=== PATIENT | female | born 1940 | race Caucasian/White ===

== ENCOUNTER 2022-06-25 21:07 | Inpatient (IN) | payer MEDICARE ==
[2022-06-26] MEDS ORDERED: Ondansetron PF 4 MG/2 ML Vial IVP PRN (01:59)
[2022-06-26] MEDS ORDERED: Ondansetron ODT 4 MG TAB PO PRN (01:59)
[2022-06-26 04:46] LABS: #Basophils 0.1 thou/uL (0.0-0.2); #Eosinphils 0.1 thou/uL (0.0-0.7); #Neutrophils 4.2 thou/uL (1.40-6.50); %Basophils 0.9 % (0.0-1.0); %Eosinophils 0.9 % (0.0-10.0); %Lymphocytes 22.1 % (21.0-51.0); %Monocytes 14.5 % (0.0-10.0); %Neutrophils 60.3 % (42.0-75.0); Hemoglobin 14.1 g/dL (12.0-16.0); Mean Corpuscular HGB CONC 32.9 g/dL (32.0-36.0); Mean Corpuscular Hemoglobin 30.5 pg (27.0-31.0); Mean Corpuscular Volume 92.4 fl (78.0-98.0); Mean Platelet Volume 9.6 fL (7.4-10.4); Platelet Count 271 10x3/uL (130-400); RBC Distribution Width 12.9 % (11.5-14.5); Red Blood Cell (RBC) Count 4.63 mill/uL (4.20-5.40)
[2022-06-26 04:56] LABS: Hemoglobin A1c 4.4 % (4.0-6.0)
[2022-06-26 05:16] LABS: Anion Gap 10 mmol/L (10-20); BUN (Urea Nitrogen) 20 mg/dL (9.8-20.1); Calc. Creatinine Clearance 65 mL/min (70-130); Calcium 8.7 mg/dL (7.8-10.44); Carbon Dioxide 25 mmol/L (23-31); Cardiac Risk 4.8 (Less than 4.5); Chloride 105 mmol/L (98-107); Cholesterol 219 mg/dl (< 200 Desired); Estimated GFR 66; Glucose 95 mg/dL (83-110); HDL Cholesterol 46 mg/dL (>60 Neg Risk); LDL Cholesterol, Calculated 133 mg/dL; Potassium 3.7 mmol/L (3.5-5.1); Sodium 136 mmol/L (136-145); Triglycerides 199 mg/dL (Less than 150)
[2022-06-26 07:12] LABS: Bacteria/HPF None Seen HPF (None Seen); Bilirubin Negative (Negative); Blood, Urine Negative (Negative); Clarity Clear (Clear); Glucose, Urine (Dipstick) Normal (Negative); Ketone, Urine Negative (Negative); Leukocyte Negative Leu/uL (Negative); Nitrite Negative (Negative); Protein, Urine (Dipstick) Negative (Neg-Trace); RBC/HPF 0-3 HPF (0-3); Specific Gravity, Urine 1.012 (1.002-1.036); Squamous Epithelial None Seen HPF (0-3); Urobilinogen Normal mg/dL (Less than 2); WBC/HPF 0-3 HPF (0-3); pH, Urine 7.5 (5.0-9.0)
[2022-06-26] MEDS: Aspirin 81 mg Enteric Coated Tablet PO SCH (08:28)
[2022-06-26] MEDS ORDERED: Lisinopril 10 MG TAB PO SCH (11:20)
[2022-06-26] MEDS: hydrALAZINE 20 MG/ML VIAL SLOW IVP PRN ×2 (12:17→20:18)
[2022-06-26] MEDS: Acetaminophen 325 MG TAB PO PRN ×2 (16:58→20:42)
[2022-06-26] MEDS: Rosuvastatin 20 MG TAB PO SCH (20:15)
[2022-06-26] MEDS ORDERED: Atorvastatin Calcium 40 MG TAB PO SCH (21:00)
[2022-06-27 04:34] LABS: #Basophils 0.1 thou/uL (0.0-0.2); #Eosinphils 0.1 thou/uL (0.0-0.7); #Monocytes 0.9 thou/uL (0.11-0.59); #Neutrophils 4.4 thou/uL (1.40-6.50); %Basophils 0.9 % (0.0-1.0); %Eosinophils 1.9 % (0.0-10.0); %Lymphocytes 18.3 % (21.0-51.0); %Monocytes 13.5 % (0.0-10.0); %Neutrophils 64.4 % (42.0-75.0); Hemoglobin 14.6 g/dL (12.0-16.0); Mean Corpuscular HGB CONC 33.5 g/dL (32.0-36.0); Mean Corpuscular Hemoglobin 30.4 pg (27.0-31.0); Mean Corpuscular Volume 90.8 fl (78.0-98.0); Mean Platelet Volume 9.5 fL (7.4-10.4); Platelet Count 297 10x3/uL (130-400); RBC Distribution Width 12.9 % (11.5-14.5); White Blood Cell (WBC) Count 6.8 10x3/uL (4.8-10.8)
[2022-06-27 05:02] LABS: Anion Gap 11 mmol/L (10-20); BUN (Urea Nitrogen) 20 mg/dL (9.8-20.1); Calc. Creatinine Clearance 70 mL/min (70-130); Calcium 9.2 mg/dL (7.8-10.44); Carbon Dioxide 22 mmol/L (23-31); Chloride 105 mmol/L (98-107); Estimated GFR 72; Glucose 95 mg/dL (83-110); Potassium 3.8 mmol/L (3.5-5.1); Sodium 134 mmol/L (136-145)
[2022-06-27] MEDS: Acetaminophen 325 MG TAB PO PRN ×4 (08:38→22:05)
[2022-06-27] MEDS: Aspirin 81 mg Enteric Coated Tablet PO SCH (08:39)
[2022-06-27] MEDS: Multivitamin W/ Minerals 1 TAB PO SCH (08:39)
[2022-06-27] MEDS: Calcium Carbonate 500 MG TAB PO SCH (08:40)
[2022-06-27] MEDS ORDERED: Aspirin Chewable 81 MG TAB PO SCH (09:00)
[2022-06-27] MEDS ORDERED: Non-Formulary Item 1 EACH (Multivitamin [Multivitamin] 1 EACH Tablet) PO SCH (09:00)
[2022-06-27] MEDS ORDERED: Lisinopril 10 MG TAB PO SCH (09:00)
[2022-06-27] MEDS ORDERED: Ascorbic Acid 500 mg Chewable Tablet PO SCH (09:00)
[2022-06-27] MEDS ORDERED: Lisinopril 20 MG TAB PO SCH (09:00)
[2022-06-27] MEDS ORDERED: Calcium Carbonate 500 MG TAB PO SCH (09:00)
[2022-06-27] MEDS ORDERED: Amlodipine 5 MG TAB PO SCH (09:00)
[2022-06-27] MEDS ORDERED: Labetalol HCl 100 MG/20 ML VIAL SLOW IVP SCH (09:15)
[2022-06-27] MEDS ORDERED: Labetalol HCl 100 MG/20 ML VIAL SLOW IVP PRN (13:17)
[2022-06-27] MEDS: Rosuvastatin 20 MG TAB PO SCH (20:21)
[2022-06-28] MEDS: Acetaminophen 325 MG TAB PO PRN ×3 (03:44→22:57)
[2022-06-28] MEDS: Lisinopril 20 MG TAB PO SCH (08:53)
[2022-06-28] MEDS: Multivitamin W/ Minerals 1 TAB PO SCH (08:53)
[2022-06-28] MEDS: Aspirin 81 mg Enteric Coated Tablet PO SCH (08:54)
[2022-06-28] MEDS: Calcium Carbonate 500 MG TAB PO SCH (08:54)
[2022-06-28] MEDS: Amlodipine 10 MG TAB PO SCH (08:54)
[2022-06-28] MEDS ORDERED: Senokot 8.6 MG TAB PO PRN (12:32)
[2022-06-28] MEDS: Rosuvastatin 20 MG TAB PO SCH (20:53)
[2022-06-29 05:27] LABS: #Basophils 0.1 thou/uL (0.0-0.2); #Eosinphils 0.2 thou/uL (0.0-0.7); #Neutrophils 3.3 thou/uL (1.40-6.50); %Basophils 1.5 % (0.0-1.0); %Eosinophils 3.6 % (0.0-10.0); %Lymphocytes 23.9 % (21.0-51.0); %Monocytes 15.7 % (0.0-10.0); %Neutrophils 53.7 % (42.0-75.0); Hemoglobin 14.1 g/dL (12.0-16.0); Mean Corpuscular HGB CONC 33.1 g/dL (32.0-36.0); Mean Corpuscular Hemoglobin 31.1 pg (27.0-31.0); Mean Platelet Volume 9.4 fL (7.4-10.4); Platelet Count 260 10x3/uL (130-400); RBC Distribution Width 12.9 % (11.5-14.5); Red Blood Cell (RBC) Count 4.53 mill/uL (4.20-5.40); White Blood Cell (WBC) Count 6.2 10x3/uL (4.8-10.8)
[2022-06-29 05:46] LABS: Anion Gap 12 mmol/L (10-20); BUN (Urea Nitrogen) 23 mg/dL (9.8-20.1); Calc. Creatinine Clearance 71 mL/min (70-130); Calcium 8.8 mg/dL (7.8-10.44); Carbon Dioxide 23 mmol/L (23-31); Chloride 103 mmol/L (98-107); Estimated GFR 74; Glucose 83 mg/dL (83-110); Potassium 3.5 mmol/L (3.5-5.1); Sodium 134 mmol/L (136-145)
[2022-06-29] MEDS ORDERED: Nebivolol HCl 5 MG TAB PO SCH (09:00)
[2022-06-29] MEDS: Acetaminophen 325 MG TAB PO PRN (10:12)
[2022-06-29] MEDS: Amlodipine 10 MG TAB PO SCH (10:16)
[2022-06-29] MEDS: Carvedilol 6.25 MG TAB PO SCH ×2 (10:17→20:44)
[2022-06-29] MEDS: Lisinopril 20 MG TAB PO SCH (10:18)
[2022-06-29] MEDS: Aspirin 81 mg Enteric Coated Tablet PO SCH (10:18)
[2022-06-29] MEDS: Calcium Carbonate 500 MG TAB PO SCH (10:19)
[2022-06-29] MEDS: Multivitamin W/ Minerals 1 TAB PO SCH (10:20)
[2022-06-29] MEDS: Polyethylene Glycol 3350 17 GM Packet PO SCH (12:58)
[2022-06-29] MEDS: Rosuvastatin 20 MG TAB PO SCH (20:44)
[2022-06-30 04:18] VITALS: BMI 28.8
[2022-06-30 07:51] VITALS: TEMP 97.5
[2022-06-30 07:53] VITALS: BP 165/78
[2022-06-30] MEDS: Aspirin 81 mg Enteric Coated Tablet PO SCH (08:31)
[2022-06-30] MEDS: Carvedilol 6.25 MG TAB PO SCH (08:32)
[2022-06-30] MEDS: Amlodipine 10 MG TAB PO SCH (08:32)
[2022-06-30] MEDS: Lisinopril 20 MG TAB PO SCH (08:32)
[2022-06-30] MEDS: Multivitamin W/ Minerals 1 TAB PO SCH (08:32)
[2022-06-30] MEDS: Calcium Carbonate 500 MG TAB PO SCH (08:33)
[2022-06-30] MEDS: Polyethylene Glycol 3350 17 GM Packet PO SCH (08:33)
== END 2022-06-30 13:40 | disposition home or self-care (01) | DRG 65 ==
LOC: INTOOBSV 21:07 → NEURO 21:07 → OBSVTOIN 06-26 10:04
PROVIDERS: ADMIT Family Medicine; ATTEND Family Medicine
DX: I63.9 Cerebral infarction, unspecified (principal); N39.0 Urinary tract infection, site not specified; I25.10 Atherosclerotic heart disease of native coronary artery without angina pectoris; E78.5 Hyperlipidemia, unspecified; I10 Essential (primary) hypertension; M17.0 Bilateral primary osteoarthritis of knee; Z96.652 Presence of left artificial knee joint; G47.00 Insomnia, unspecified; Z66 Do not resuscitate; E86.0 Dehydration; E87.6 Hypokalemia; G83.11 Monoplegia of lower limb affecting right dominant side; Z88.5 Allergy status to narcotic agent; Z79.82 Long term (current) use of aspirin; Z79.899 Other long term (current) drug therapy; Z95.5 Presence of coronary angioplasty implant and graft; Z90.49 Acquired absence of other specified parts of digestive tract; Z90.710 Acquired absence of both cervix and uterus; Z98.890 Other specified postprocedural states; Z87.891 Personal history of nicotine dependence
CPT/HCPCS: 36415; 70551; 80048; 80061; 81001; 83036; 84443; 84484; 85025; 87086; 93005; 93010; 93306; 93880; 96372; G0378; J0360; J0780; J1650; J2405; Q0162